=== PATIENT | male | born 2000 | race Caucasian/White ===

== ENCOUNTER 2023-02-18 04:59 | Emergency (ER) | payer SELFPAY ==
--- NOTE | 2023-02-18 05:37 | ED Physician Documentation ---
History of Present Illness - Stated complaint Stated Complaint: ETOH - Chief complaint Chief Complaint: Neuro - History obtained from History obtained from: Patient, EMS - Additonal information Additional information: 22-year-old man was brought in by EMS after being found on the floor at the laundry room and his parents where he resides while working for the [employer].Patient states he drink a lot of alcohol tonight. AO x3. No other complaints. PD PAST MEDICAL HISTORY - Past Medical History Past Medical History: No - Past Surgical History Past Surgical History: No - Allergies Allergies/Adverse Reactions: Allergies Allergy/AdvReac Type Severity Reaction Status Date / Time No Known Drug Allergies Allergy Verified 02/18/23 05:10 - Social History Does the pt smoke?: No Smoking Status: Never smoker Does the pt drink ETOH?: Yes Does the pt have substance abuse?: No - Immunizations Immunizations are current?: Yes - POLST Patient has POLST: No PD ED PE NORMAL - Vitals Vital signs reviewed: Yes - General General: Alert and oriented X 3, No acute distress, Well developed/nourished, Other (Intoxicated with alcohol) - HEENT HEENT: Atraumatic, PERRL, EOMI - Neck Neck: Supple, no meningeal sign - Cardiac Cardiac: RRR - Respiratory Respiratory: No respiratory distress, Clear bilaterally Results - Vitals Vitals: Vital Signs - 24 hr 02/18/23 05:04 Temperature 36.8 C Heart Rate 84 Respiratory 18 Rate Blood Pressure 126/75 O2 Saturation 96 Oxygen O2 Source Room air PD Medical Decision Making - ED course ED course: 22-year-old man presents with alcohol intoxication. Plan to endorse to incoming daytime EDMD at 7 AM shift change pending sobriety.
--- NOTE | 2023-02-18 07:56 | ED Physician Documentation ---
ED Addendum - Addendum Addendum: 02/18/23 07:55 Saw the patient on change of shift. He is sleeping comfortably. He is supine on a flat bed. I raised his head of bed up to 30 degrees. I palpated the oropharynx with a tongue depressor and he does have a good gag reflex. He was minimally arousable to just mumbling at this time. He will need further time to metabolize alcohol. His blood sugar has been good on presentation. We can check it again in a couple of hours.
[2023-02-18 11:39] VITALS: BP 109/80
== END 2023-02-18 12:27 | disposition home or self-care (01) ==
LOC: EDBD → ED 04:59
DX: F10.129 Alcohol abuse with intoxication, unspecified (principal); R41.82 Altered mental status, unspecified
CPT/HCPCS: 99282; 99283